=== PATIENT | female | born 2000 | race Caucasian/White ===

== ENCOUNTER 2020-08-25 10:00 | Outpatient (RCR) | payer OTHER, SELFPAY | END 2020-09-11 08:57 | disposition other institution (70) | LOC: HO.PT 10:00 | PROVIDERS: PCP Pediatrics; Visit Provider Pediatrics | DX: M94.0 Chondrocostal junction syndrome [Tietze] (principal) | CPT/HCPCS: 97110; 97161; 97530 ==

== ENCOUNTER 2023-03-07 09:57 | Outpatient (AMB) | payer OTHER, SELFPAY ==
[2023-03-07 09:59] VITALS: BP 124/86; PULSE 84; O2SAT 98; BMI 31.1
--- NOTE | 2023-03-07 09:59 | A.OFFVIS_ITS ---
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 Pt is here for med management, Pt states she gets migraines around her menstrual cycle and other times as well. Health Diagnostics Teacher Required: No Allergies banana Allergy (Unknown, Verified 03/07/23 10:09) Itching tree nut Allergy (Unknown, Verified 03/07/23 10:09) Itching Medication List - Last Reconciled 03/07/23 by Amina Hunter, STEVEN fluticasone propionate 50 mcg/actuation sprays intranasal L norgest/e.estradiol-e.estrad 0.15 mg-30 mcg (84)/10 mcg (7) (Simpesse) 1 tab PO DAILY prochlorperazine maleate 5 mg PO BID PRN propranolol 10 mg PO DAILY sertraline 100 mg PO DAILY HPI HPI Comments History of Present Illness Details Right-handed 22-yr-old female presents for new pt evaluation of headache disorder, specifically migraine. Pt reports she started having migraines at age 12, around the time of menarche. She previously saw Dr Webb, huma simpson, but ws last seen 4-5 yrs ago. She comes to see us today to restsablish care w/ neuro- as her headache have been getting worse. Headache questionnaire: Preceding causes? None Previous work-up? No h/o head imaging. She has had normal eye exams. Typical headache characteristics: Prodrome symptoms? None Aura? Sometimes the right eye will see flying zigzaggy objects in the peripheral vision- during the headache Location, quality, characteristics? Pounding pain starts in right eye and moves across her head. Pain intensity? 10/10 when severe Associated symptoms? photophobia, phonophobia, nausea, vomiting, dizziness, brain fog, tiredness, activity intolerance. Focal weakness, Parethesias, Autonomic s/s? right eye droop, watery, Has not noticed red eye, rhinorhea, or nasal congestion, numbness/tingling, diplopia. tingling/speech changes. Postdrome? Not usually Triggers? None Any positional, valsalva, exertional, sexual activity triggers? None Menstrual triggers? Has 1-2 more severe migraine attacks during her menses Time of day? Any time Duration? 1-2 days Frequency? 7 headaceh days in the last month. How does headache impact your life? 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 Going to school to be an EMT. Current acute medication use/interventions: Ibuprofen- not always helpful. Compazine 5mg- helps for severe migraine, N/V- but causes drowsiness. Previous acute medication use: Frovatriptan- was helpful. Tylenol- not helpful. Excedrin- ineffective. Naproxen- ineffective. Current preventative medication use: Propranolol 10mg qhs- uses for anxiety. Previous preventative medication use: Topiramate- helped some but stopped d/t family h/o kidney stones. Non-pharmacological interventions: Compress to head, rest. Other history of headache disorder? No other History of musculoskeletal disorders or injury? None History of concussion/head injury? None History of mood disorder? Anxiety and Depression, PTSD- controlled. History of sleep disorder? Always tired. Sleeps well, just a lot. Denies snoring. History of respiratory disease? None History of CV disease? None History of coagulopathy? None History of endocrine or metabolic disease? None. She wll start on new OCP- Simpesse- where she will have a menses q 3-4 months. History of seizure? Infantile febrile seizures- none since. History of GI disorder? None- denies constipation. Family planning? None Family history of migraine or other headache disorder? Mother PFSH Family History (Updated 03/07/23 @ 10:12 by Erendira Borden CMA) Father Seizures Mother Kidney stones Social History (Updated 03/07/23 @ 10:12 by Erendira Borden CMA) Patient Tobacco Use Status: Never used Tobacco Review of Systems Const Details: See scanned ROS form Physical Exam Vital Signs: Last Vital Signs Pulse 84 03/07/23 09:59 BP 124/86 03/07/23 09:59 Pulse Ox 98 03/07/23 09:59 Oxygen Delivery Method Room Air 03/07/23 09:59 BMI result Body Mass Index 31.1 Const Orientation/consciousness: patient oriented x3 HEENT Other: Mild right frontal and temporal palpable scalp tenderness. Head: Yes normocephalic Resp Effort & Inspection: normal respiratory effort and able to speak in complete sentences Back/Spine/Pelvis Other: Bilateral posterior cervical tightness. Cervical ROM: full Left Spurling: normal Right Spurling: normal. Neuro Other: Pt currently reports mild migraine General: patient oriented x3 Cranial nerves: Yes CN's II-XII intact bilaterally (w/ exception of right eyelid ptosis and photophobia ) Cognition (Neuro): normal cognition Gait exam (Neuro): Normal gait present Motor exam (neuro): 5/5 motor strength present throughout Deep tendon reflexes (DTR's): Right triceps reflex intensity grade: 2+, Left triceps reflex intensity grade: 2+, Rt Biceps (C5, C6): 2+, Left biceps reflex intensity grade: 2+, Right brachioradialis reflex intensity grade: 2+, Left brachioradialis reflex intensity grade: 2+, Right patellar reflex intensity grade: 2+ and Left patellar reflex intensity grade: 2+ Coordination: [id number] test normal, tandem gait normal and Romberg test negative Pupils: Normal pupillary reactivity/response: bilateral Psych Appearance: grossly normal Mental Status: mental status grossly normal Speech and movement: Normal speech and movement present Affect: normal affect Attitude: cooperative Thought process: Normal thought process present Assessment & Plan Assessment & Plan (1) Snoring: Code(s): R06.83 - Snoring (2) Excessive daytime sleepiness: Code(s): G47.19 - Other hypersomnia (3) Hypersomnia: Code(s): G47.10 - Hypersomnia, unspecified (4) Migraine: Code(s): G43.909 - Migraine, unspecified, not intractable, without status migrainosus (5) Ptosis, right eyelid: Code(s): H02.401 - Unspecified ptosis of right eyelid (6) Visual aura: Code(s): H53.9 - Unspecified visual disturbance (7) Menstrual migraine: Code(s): G43.829 - Menstrual migraine, not intractable, without status migrainosus Plan Pt advised to undergo brain MRI w/wo to assess for intracranial/cranial nerve etiologies of right eye ptosis, atypical right eye side locked visual aura. Pt advised to undergo HST to assess for sleep apnea. For overall headache management: Discussed importance of good self-care, including but not limited to maintaining a healthy diet, adequate fluid intake, adequate sleep, and engaging in regular physical activity. For headache triggers: Track headaches, especially after any treatment regimen changes. Migraine [employer] com is one of many headache tracking apps. For acute headache treatment: Discussed importance of taking acute medications at the first sign of headache, however stressed importance of avoiding acute medication overuse (especially with combined headache medications). Trial Sumatriptan 100mg tab, 1/2 - 1 tab (50-100mg) at onset of headache, may repeat in 2 hours. Max of 2 tabs (200mg) per 24 hours. May adjunct with OTC Tyle nol 650mg q 4 hours, or Ibuprofen 600mg q 6 hours. May continue prn Ibuprofen. May continue Compazine 5mg- prn for severe migraine, N/V. Reviewed risk for TD. Reviewed potential adverse effects of triptans, including but not limited to nausea, fatigue, chest tightness/tingling (usually passes within a few minutes), medication overuse headaches. Previous acute migraine medication trials: Frovatriptan- effective. Tylenol- not helpful. Excedrin- ineffective. Naproxen- ineffective. Acute migraine medication contraindications: None at this time For headache prevention medication: Discussed that preventative medications should be taken routinely as prescribed for best effect, it may take several weeks for full effect to take effect. Continue Propranolol 10mg qhs- used primarily for anxiety- would not increase further d/t hypersomnia. Start Ajovy 225mg sc q month Reviewed potential adverse effects of Ajovy, including but not limited to injection site reactions. Previous migraine prevention medication trials: Topiramate- helped some but stopped d/t family h/o kidney stones. Migraine prevention medication contraindications: Topiramate- d/t family h/o kidney stones. For menstrual migraine: Resume Frovatriptan 2.5mg bid- start 2 days before onset of menses for up to 6 days total. Pt to follow-up in 3 months or sooner prn. Orders: Orders RT home sleep study Today G47.10 - Hypersomnia, unspecified, G47.19 - Other hypersomnia, R06.83 - Snoring MR head/brain wo/w con Today G43.909 - Migraine, unspecified, not intractable, without status migrainosus, H02.401 - Unspecified ptosis of right eyelid, H53.9 - Unspecified visual disturbance Medications: New fremanezumab-vfrm (Ajovy) administer 225mg sc q month 225 mg (1.5 mL) subcut ONCE 30 days 1.5 mL 6RF sumatriptan succinate (0.5 - 1 x 100 mg) 50 - 100 mg orally at onset of headache, may repeat in 2 hrs PRN; max 2 tabs per day or 4 tabs/week (may take w ith Tylenol) 30 days 12 tabs 6RF migraine headache frovatriptan 2.5 mg orally bid- start 2 days before menses (max 6 days per month) PRN; 30 days 12 tabs 6RF migraine headache Coding Level of Care Code New Pt Level 4 (61410) Diagnoses Snoring R06.83 Excessive daytime sleepiness G47.19 Hypersomnia G47.10 Migraine G43.909 Ptosis, right eyelid H02.401 Visual aura H53.9 Menstrual migraine G43.829
== END 2023-03-07 11:24 | disposition home or self-care (01) ==
PROVIDERS: Visit Provider Nurse Practitioner Family
DX: R06.83 Snoring (principal); G47.19 Other hypersomnia; G47.10 Hypersomnia, unspecified; G43.909 Migraine, unspecified, not intractable, without status migrainosus; H02.401 Unspecified ptosis of right eyelid; H53.9 Unspecified visual disturbance; G43.829 Menstrual migraine, not intractable, without status migrainosus
CPT/HCPCS: 99204

== ENCOUNTER → 2023-03-07 09:57 | Outpatient (BNVA) | payer OTHER, SELFPAY | PROVIDERS: Visit Provider Nurse Practitioner Family ==

== ENCOUNTER 2023-03-17 15:23 | Outpatient (AMB) | payer OTHER, SELFPAY ==
[2023-03-17 15:56] VITALS: BP 132/74; PULSE 88; O2SAT 99; BMI 30.8
--- NOTE | 2023-03-17 15:56 | MHC.OFFVIS ---
Intake Vital Signs 03/17/23 15:56 Height 5 ft 3 in Weight 174 lb BMI 30.8 BP 132/74 Blood Pressure Location Rt brachial Position Sitting Pulse 88 Pulse Source Pulse Oximeter Pulse Oximetry (%) 99 Oxygen Delivery Method Room Air Intake Visit Reasons: injection training Intake Note: Pt presents to the office today for a nurse visit for injection training. Allergies banana Allergy (Unknown, Verified 03/17/23 16:00) Itching tree nut Allergy (Unknown, Verified 03/17/23 16:00) Itching HPI HPI Comments History of Present Illness Details 22 y/o female patient presents for Ajovy injection training. Ajovy 225 mg/1.5ml injection sample provided. Lot #[id number] and Exp [id number] Education regarding injection and side effects provided. Ajovy 225 mg/1.5ml injection self administered on LLQ. Pt tolerated and demonstrated the injection well. PFSH Family History Father Seizures Mother Kidney stones Social History Patient Tobacco Use Status: Never used Tobacco Physical Exam Vital Signs: Last Vital Signs Pulse 88 03/17/23 15:56 BP 132/74 03/17/23 15:56 Pulse Ox 99 03/17/23 15:56 Oxygen Delivery Method Room Air 03/17/23 15:56 BMI result Body Mass Index 30.8 Assessment & Plan Assessment & Plan (1) Migraine: Code(s): G43.909 - Migraine, unspecified, not intractable, without status migrainosus Plan Follow up in clinic as scheduled or prn with concerns. Coding Level of Care Code Est Pt Level 1 (76548) Diagnoses Migraine G43.909
== END 2023-03-17 16:17 | disposition home or self-care (01) ==
PROVIDERS: PCP Pediatrics; Visit Provider Nurse Practitioner Family
DX: G43.909 Migraine, unspecified, not intractable, without status migrainosus (principal)

== ENCOUNTER → 2023-03-17 15:23 | Outpatient (BNVA) | payer OTHER, SELFPAY | PROVIDERS: PCP Pediatrics; Visit Provider Nurse Practitioner Family | DX: G43.909 Migraine, unspecified, not intractable, without status migrainosus (principal) | CPT/HCPCS: 99211 ==

== ENCOUNTER → 2023-04-17 10:08 | Outpatient (REF) | payer OTHER, SELFPAY | LOC: HO.SL 10:08 | PROVIDERS: PCP Pediatrics; Visit Provider Nurse Practitioner Family | DX: Z13.89 Encounter for screening for other disorder (principal) ==

== ENCOUNTER 2023-05-21 16:30 | Outpatient (REF) | payer OTHER, SELFPAY ==
--- NOTE | ~2023-05-21 | MR_ITS ---
EXAMINATION: MR BRAIN WITHOUT AND WITH CONTRAST CLINICAL INFORMATION: ptosis of right eyelid COMPARISON: None TECHNIQUE: Multiplanar multisequence MR imaging of the brain was obtained without and following the administration of 7.5 mL Gadavist intravenous contrast. FINDINGS: There is no acute infarct on diffusion-weighted imaging. There is no intracranial hemorrhage on iron-sensitive imaging. No extra-axial collection or mass effect/herniation. Normal parenchymal signal characteristics. No hydrocephalus. The ventricles are normal in morphology and size. No abnormal parenchymal or extra-axial enhancement. The major flow voids at the skull base are preserved. The midline structures are normal. The cerebellar tonsils are normally positioned. The craniocervical junction is normal. Marrow signal is within normal limits. The visualized soft tissues are without significant abnormality. No signal abnormality within the paranasal sinuses or within the mastoid air cells. MR/MR head/brain wo/w con IMPRESSION: Unremarkable contrast enhanced MRI of the brain.
[2023-05-21] MEDS: gadobutroL 7.5 ML VIAL IVPUSH (17:22)
== END 2023-05-21 16:31 | disposition home or self-care (01) ==
LOC: HO.MRI 16:30
PROVIDERS: PCP Pediatrics; Visit Provider Nurse Practitioner Family
DX: H02.401 Unspecified ptosis of right eyelid (principal); G43.909 Migraine, unspecified, not intractable, without status migrainosus; H53.9 Unspecified visual disturbance
CPT/HCPCS: 70553; A9585

== ENCOUNTER 2023-05-30 15:58 | Outpatient (REF) | payer OTHER, SELFPAY ==
[2023-05-30 16:23] LABS: MANUAL DIFF FLAG NO
[2023-05-30 17:05] LABS: Basophils Absolute Auto 0.1 X10*3/uL (0.0-0.2); Basophils Percent Auto 0.6 % (0-2); Eosinophils Absolute Auto 0.2 X10*3/uL (0.0-0.4); Hematocrit 38.1 % (37.0-47.0); Hemoglobin 12.1 g/dl (12.0-16.0); Imm Gran Abs Auto 0.03 X10*3/uL (0.00-0.03); Imm Gran Pct Auto 0.4 % (0.0-0.4); Lymphocytes Absolute Auto 3.2 X10*3/uL (1.2-4.9); Lymphocytes Percent Auto 39.3 % (20-40); Mean Corpuscular HGB Conc 31.8 g/dl (31.0-35.0); Mean Corpuscular Hemoglobin 27.6 pg (27.0-33.0); Mean Platelet Volume 10.9 fL (9.4-12.3); Monocytes Absolute Auto 0.6 X10*3/uL (0.1-1.2); Monocytes Percent Auto 7.1 % (2-11); Neutrophils Absolute Auto 4.1 x10*3/uL (2.0-8.3); Neutrophils Percent Auto 50.6 % (45-73); Platelet Count 340 X10*3/uL (160-400); Red Blood Count 4.38 X10*6/uL (4.20-5.50)
[2023-05-30 17:35] LABS: Alanine Aminotransferase 18 U/L (0-31); Albumin Level 4.2 g/dL (3.5-5.0); Alkaline Phosphatase 66 U/L (39-117); Aspartate Amino Transferase 17 U/L (5-31); Bilirubin Direct < 0.2 mg/dL (0.0-0.5); Bilirubin Total 0.1 mg/dL (0.0-1.0); C Reactive Protein 1.49 mg/dL (< or = 0.50); Total Protein 7.2 g/dL (6.5-8.0)
[2023-05-30 17:48] LABS: Erythrocyte Sedimentation Rate 5 MM/HR (0-20)
[2023-06-02 16:38] LABS: Immunoglobulin A 88 mg/dL (47-310)
[2023-06-03 16:48] LABS: Endomysial IgA Antibody Negative (Negative)
[2023-06-03 20:04] LABS: Gliadin Deamidated IgA Ab 2.4 U/mL; Gliadin Deamidated IgG Ab <1.0 U/mL; Transglutaminase Ab IgG <1.0 U/mL; Transglutaminase IgA <1.0 U/mL
== END 2023-05-30 15:59 | disposition home or self-care (01) ==
LOC: HO.LAB 15:58
PROVIDERS: Visit Provider Internal Medicine
DX: R19.7 Diarrhea, unspecified (principal)
CPT/HCPCS: 36415; 80076; 82784; 85025; 85652; 86140; 86231; 86258; 86364

== ENCOUNTER 2023-06-23 09:37 | Outpatient (AMB) | payer OTHER, SELFPAY ==
--- NOTE | 2023-06-23 09:51 | A.OFFVIS_ITS ---
Intake Vital Signs 06/23/23 09:52 Weight 185 lb BP 100/66 Blood Pressure Location Rt brachial Position Sitting Pulse 96 Pulse Source Pulse Oximeter Pulse Oximetry (%) 98 Oxygen Delivery Method Room Air Intake Visit Reasons: 3m follow up Migraines/ LVM Allergies banana Allergy (Unknown, Verified 06/23/23 09:54) Itching tree nut Allergy (Unknown, Verified 06/23/23 09:54) Itching Medication List - Last Reconciled 06/23/23 by STEVEN Luz fluticasone propionate 50 mcg/actuation sprays intranasal fremanezumab-vfrm (Ajovy) 225 mg (1.5 mL) subcut ONCE 30 days frovatriptan 2.5 mg orally bid- start 2 days before menses (max 6 days per month) PRN; 30 days L norgest/e.estradiol-e.estrad 0.15 mg-30 mcg (84)/10 mcg (7) (Simpesse) 1 tab PO DAILY prochlorperazine maleate 5 mg PO BID PRN propranolol 10 mg PO DAILY sertraline 100 mg PO DAILY sumatriptan succinate 50 - 100 mg orally at onset of headache, may repeat in 2 hrs PRN; max 2 tabs per day or 4 tabs/week (may take with Tylenol) 30 days HPI HPI Comments History of Present Illness Details 22-yr-old female presents for f/u visit. Pt denies any significant interval medical changes. Pt reports since starting Ajovy, she has had a decrease in her migraines. Was 7 days a month, now 3 days per month- often after the Emgality injection. Sumatriptan is helpful if she takes at the 1st sign. She did not complete her HST- was sick at the time and had to return it. She continues to have excessive daytime tiredness, hypersomnia, snoring. Brain MRI was normal. [facility] Family History Father Seizures Mother Kidney stones Social History (Updated 06/23/23 @ 09:55 by Huyen Caraballo) Alcohol intake: never Patient Tobacco Use Status: Never used Tobacco Review of Systems Const All systems reviewed & are unremarkable except as noted in HPI and below Physical Exam Vital Signs: Last Vital Signs Pulse 96 06/23/23 09:52 BP 100/66 12/04/23 09:52 Pulse Ox 98 06/23/23 09:52 Oxygen Delivery Method Room Air 06/23/23 09:52 Const General: cooperative and no acute distress Orientation/consciousness: patient oriented x3 HEENT Head: Yes normocephalic Resp Effort & Inspection: normal respiratory effort and able to speak in complete sentences Neuro General: patient oriented x3, gait normal and CN's II-XI intact bilaterally Cognition (Neuro): normal cognition Motor exam (neuro): 5/5 motor strength present throughout Psych Appearance: grossly normal Mental Status: mental status grossly normal Speech and movement: Normal speech and movement present Affect: normal affect Attitude: cooperative Thought process: Normal thought process present Thought content: Normal thought content present Insight: Good insight present (Psych) Judgement: Good judgement present (Psych) Assessment & Plan Assessment & Plan (1) Migraine: Code(s): G43.909 - Migraine, unspecified, not intractable, without status migrainosus (2) Menstrual migraine: Code(s): G43.829 - Menstrual migraine, not intractable, without status migrainosus (3) Hypersomnia: Code(s): G47.10 - Hypersomnia, unspecified (4) Excessive daytime sleepiness: Code(s): G47.19 - Other hypersomnia (5) Snoring: Code(s): R06.83 - Snoring Plan Reviewed Brain MRI w/wo- normal. Pt again advised to undergo HST to assess for sleep apnea. For overall headache management: Continue to optimize good self-care, including but not limited to maintaining a healthy diet, adequate fluid intake, adequate sleep, and engaging in regular physical activity. Track headaches. For acute headache treatment: Carry 1-2 doses of acute medications w/ pt at all x's. Continue Sumatriptan 100mg tab, 1/2 - 1 tab (50-100mg) at onset of headache, may repeat in 2 hours. Max of 2 tabs (200mg) per 24 hours. May adjunct with OTC Tylenol 650mg q 4 hours, or Ibuprofen 600mg q 6 hours. Continue prn Ibuprofen. Continue Compazine 5mg- prn for severe migraine, N/V. Reviewed risk for TD. Previous acute migraine medication trials: Frovatriptan- effective. Tylenol- not helpful. Excedrin- ineffective. Naproxen- ineffective. Acute migraine medication contraindications: None at this time For headache prevention medication: Continue Propranolol 10mg qhs- used primarily for anxiety- would not increase further d/t hypersomnia. Continue Ajoivy 225mg sc q month- as pt has had > 50% reduction in monthly migraine days Previous migraine prevention medication trials: Topiramate- helped some but stopped d/t family h/o kidney stones. Migraine prevention medication contraindications: Topiramate- d/t family h/o kidney stones. For menstrual migraine: Consider resuming Frovatriptan 2.5mg bid- not rec'd from pharmacy yet. Pt to follow-up in 6 months or sooner prn. Orders: Orders RT home sleep study Today G47.10 - Hypersomnia, unspecified, G47.19 - Other hypersomnia, R06.83 - Snoring Coding Level of Care Code Est Pt Level 4 (18968) Diagnoses Migraine G43.909 Menstrual migraine G43.829 Hypersomnia G47.10 Excessive daytime sleepiness G47.19 Snoring R06.83
[2023-06-23 09:52] VITALS: BP 100/66; PULSE 96; O2SAT 98
== END 2023-06-23 10:34 | disposition home or self-care (01) ==
PROVIDERS: PCP Pediatrics; Visit Provider Nurse Practitioner Family
DX: G43.909 Migraine, unspecified, not intractable, without status migrainosus (principal); G43.829 Menstrual migraine, not intractable, without status migrainosus; G47.10 Hypersomnia, unspecified; G47.19 Other hypersomnia; R06.83 Snoring
CPT/HCPCS: 99214

== ENCOUNTER → 2023-06-23 09:37 | Outpatient (BNVA) | payer OTHER, SELFPAY | PROVIDERS: PCP Pediatrics; Visit Provider Nurse Practitioner Family ==

== ENCOUNTER 2024-01-19 11:46 | Outpatient (AMB) | payer OTHER, SELFPAY ==
[2024-01-19 12:06] VITALS: BP 122/84; PULSE 76; O2SAT 99; BMI 33.1
--- NOTE | 2024-01-19 12:06 | MHC.OFFVIS ---
Vital Signs 01/19/24 12:06 Height 5 ft 3 in Weight 187 lb BMI 33.1 BP 122/84 Blood Pressure Location Rt brachial Position Sitting Pulse 76 Pulse Source Pulse Oximeter Pulse Oximetry (%) 99 Oxygen Delivery Method Room Air Intake Visit Reasons: Annual check up-LVM Intake Note: Patient presents for annual check up. patient has no issues or concerns today Allergies banana Allergy (Unknown, Verified 01/19/24 12:12) Itching tree nut Allergy (Unknown, Verified 01/19/24 12:12) Itching Medication List - Last Reconciled 01/19/24 by STEVEN Luz fluticasone propionate 50 mcg/actuation sprays intranasal fremanezumab-vfrm (Ajovy) 225 mg (1.5 mL) subcut ONCE 30 days frovatriptan 2.5 mg orally bid- start 2 days before menses (max 6 days per month) PRN; 30 days L norgest/e.estradiol-e.estrad 0.15 mg-30 mcg (84)/10 mcg (7) (Simpesse) 1 tab PO DAILY prochlorperazine maleate 5 mg PO BID PRN propranolol 10 mg PO DAILY sertraline 100 mg PO DAILY sumatriptan succinate 50 - 100 mg orally at onset of headache, may repeat in 2 hrs PRN; max 2 tabs per day or 4 tabs/week (may take with Tylenol) 30 days topiramate 25 - 50 mg (1 - 2 x 25 mg) PO BEDTIME 30 days HPI Comments Details: 23-yr-old presents for f/u visit of migraine and sleep. Pt denies any significant interval medical changes. Pt reports she stopped the Ajovy- as it was a hassle to obtain through the pharmacy. So she requested to retry Topiramate. She started Topiramate 25mg which took the edge off, and then increased it to 50mg qhs. For about a week after increasing the dose, they had bilateral fingertip tingling, but then this subsided. Has not needed to use any as needed headache medication lately. Baseline headache characteristics: Prodrome symptoms: None Aura: Sometimes the right eye will see flying zigzaggy objects in the peripheral vision- during the headache Severe pounding pain starts in right eye and moves across her head a/w photophobia, phonophobia, nausea, vomiting, dizziness, brain fog, tiredness, activity intolerance, right eye droop, watery. Postdrome: Not usually PFSH Family History Father Seizures Mother Kidney stones Social History Alcohol intake: never Patient Tobacco Use Status: Never used Tobacco Physical Exam Vital Signs: Last Vital Signs Pulse 76 01/19/24 12:06 BP 122/84 01/19/24 12:06 Pulse Ox 99 01/19/24 12:06 Oxygen Delivery Method Room Air 01/19/24 12:06 BMI result Body Mass Index 33.1 Const General: cooperative and no acute distress Orientation/consciousness: patient oriented x3 Resp Effort & Inspection: normal respiratory effort and able to speak in complete sentences Neuro General: patient oriented x3 Cranial nerves: Yes CN's II-XII intact bilaterally Cognition (Neuro): normal cognition Psych Appearance: grossly normal Mental Status: mental status grossly normal Speech and movement: Normal speech and movement present Affect: normal affect Attitude: cooperative Assessment & Plan Assessment & Plan (1) Migraine: Code(s): G43.909 - Migraine, unspecified, not intractable, without status migrainosus Category: Medical (2) Visual aura: Code(s): H53.9 - Unspecified visual disturbance Category: Medical (3) Menstrual migraine: Code(s): G43.829 - Menstrual migraine, not intractable, without status migrainosus Category: Medical (4) Hypersomnia: Code(s): G47.10 - Hypersomnia, unspecified Category: Medical Plan When able, HST to assess for sleep apnea. ? For overall headache management: Continue to optimize good self-care, including but not limited to maintaining a healthy diet, adequate fluid intake, adequate sleep, and engaging in regular physical activity. Track headaches. ? For acute headache treatment: Carry 1-2 doses of acute medications w/ pt at all x's. Continue Sumatriptan 100mg tab, 1/2 - 1 tab (50-100mg) at onset of headache, may repeat in 2 hours. Max of 2 tabs (200mg) per 24 hours. May adjunct with OTC Tylenol 650mg q 4 hours, or Ibuprofen 600mg q 6 hours. Continue prn Ibuprofen. Continue Compazine 5mg- prn for severe migraine, N/V. Reviewed risk for TD. Previous acute migraine medication trials: Frovatriptan- effective. Tylenol- not helpful. Excedrin- ineffective. Naproxen- ineffective. Acute migraine medication contraindications: None at this time ? For headache prevention medication: Continue Propranolol 10mg qhs- used primarily for anxiety- would not increase further d/t hypersomnia. Continue Topiramate 50mg qhs. Pt has stopped Ajoivy 225mg- found it to be more cumbersome to manage receiving it than was beneficial. Previous migraine prevention medication trials: Topiramate- helped some but stopped d/t family h/o kidney stones. Migraine prevention medication contraindications: Topiramate- d/t family h/o kidney stones. ? For menstrual migraine: Consider resuming Frovatriptan 2.5mg bid- not rec'd from pharmacy yet. ? Pt to follow-up in 6 months or sooner prn. Medications: New topiramate 50 mg PO BEDTIME 30 days 30 tabs 6RF Refilled sumatriptan succinate (0.5 - 1 x 100 mg) 50 - 100 mg orally at onset of headache, may repeat in 2 hrs PRN; max 2 tabs per day or 4 tabs/week (may take with Tylenol) 30 days 12 tabs 6RF migraine headache Discontinued fremanezumab-vfrm (Ajovy) administer 225mg sc q month Discontinued Reason: Patient no longer taking 225 mg (1.5 mL) subcut ONCE 30 days 1.5 mL 6RF topiramate Discontinued Reason: Doctor's Order 25 - 50 mg (1 - 2 x 25 mg) PO BEDTIME 30 days 60 tabs 3RF Coding Level of Care Code Est Pt Level 4 (60039) Diagnoses Migraine G43.909 Visual aura H53.9 Menstrual migraine G43.829 Hypersomnia G47.10
== END 2024-01-19 13:08 | disposition home or self-care (01) ==
PROVIDERS: PCP Pediatrics; Visit Provider Nurse Practitioner Family
DX: G43.909 Migraine, unspecified, not intractable, without status migrainosus (principal); H53.9 Unspecified visual disturbance; G43.829 Menstrual migraine, not intractable, without status migrainosus; G47.10 Hypersomnia, unspecified
CPT/HCPCS: 99214

== ENCOUNTER → 2024-01-19 11:46 | Outpatient (BNVA) | payer OTHER, SELFPAY | PROVIDERS: PCP Pediatrics; Visit Provider Nurse Practitioner Family ==

== ENCOUNTER → 2024-08-25 12:52 | Outpatient (BNVA) | payer OTHER, SELFPAY | PROVIDERS: PCP Pediatrics; Visit Provider Nurse Practitioner Family ==

== ENCOUNTER 2025-05-19 12:25 | Outpatient (AMB) | payer OTHER, SELFPAY ==
--- OUTSIDE RECORDS SUMMARY | 2023-11-25 05:10 | XMS_ITS ---
Author Organization [facility] Address [address] [place] [id number] Care Team Providers Care Nursing Education Specialist Name Role Phone Houston DOMINGUEZ, [place] Primary Care Provider UnavailRoland Vazquez [phone] REASON FOR VISIT Patient presents today for diarrhea Encounters Encounter Location Date Provider Diagnosis [facility] [address] [place] [id number] 11/25/2023 Roland Clark Plan Of Treatment No Information Progress Notes * TIFFANY VALEALPHONSOOB:[birth year] (24 yo F)Acc No.[id number]:11/25/2023 Progress Notes Patient: ALEXANDREA PANTOJA Provider: Misty Clark MD :2000 A ge:22 Y S ex:Female Date:11/25/2023 Address:[address] [place], [place] [id number] Pcp:Aurora Conrad NP Subjective: * Chief Complaints: * 1 . Patient presents today for diarrhea. * Medical History: Objective: * Vitals: Assessment: Plan: * Treatment: * * The named appointment provid er may or may not be the originator of this progress note, and it is not deemed complete until electronically signed by the appointment provider. Sign off status: Pending * Provider: Misty Clark MD Date: 0 11/25/2023 Generated for Lumai ng/Fakendrickg/eTransmitting on: 1 03:16 PM EDT
[2025-05-19 12:27] VITALS: BP 110/60; PULSE 90; RESP 16; O2SAT 99; BMI 30.5
--- NOTE | 2025-05-19 12:27 | MHC.PC.OV ---
Vital Signs 05/19/25 12:27 Height 5 ft 3 in Weight 172 lb BMI 30.5 BP 110/60 Blood Pressure Location Lt brachial Position Sitting Respiration 16 Pulse 90 Pulse Source Pulse Oximeter Pulse Oximetry (%) 99 Oxygen Delivery Method Room Air Intake Visit Reasons: [employer] sera Gallego. Steaming Machine Operator Required: No Allergies banana Allergy (Unknown, Verified 05/19/25 12:58) Itching tree nut Allergy (Unknown, Verified 05/19/25 12:58) Itching Medication List - Last Reconciled 05/19/25 by Julián Ríos, [facility] frovatriptan 1 tab bid x's 6 days prior to start of menstrual cycle. 30 days L norgest/e.estradiol-e.estrad 0.15 mg-30 mcg (84)/10 mcg (7) (Simpesse) 1 tab PO DAILY prochlorperazine maleate 5 mg PO BID PRN 30 days propranolol 10 mg PO DAILY sertraline 150 mg PO DAILY sumatriptan succinate 50 - 100 mg orally at onset of headache, may repeat in 2 hrs PRN; max 2 tabs per day or 4 tabs/week (may take with Tylenol) 30 days topiramate 50 mg PO BEDTIME 30 days Tobacco use date assessed: 05/19/25 Dental Screening Dental Screen Date: 05/19/25 Did you have a dental visit in the last 12 months?: Yes Did you have a dental problem in the last 6 months where you did not have access to dental care?: No Was dental information given to patient?: Patient has dentist HPI [employer] sera Gallego. HPI Details History of Present Illness The patient is a 24-year-old female presenting for a physical exam and to establish care. 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 The patient reports she is doing quite well. She has a psychiatric history and sees both a therapist and a psychiatrist. For gynecological care, she has an established [facility] for Pap smears. Hx of migraines, sees a neurologist Health Maintenance - The patient is here for a physical exam. - The patient has a elevator service technician for routine Pap smears. - Fasting labs are planned for the near future. Social History - Employment: The patient has been working for an ambulance team for about seven months. - Exercise: She enjoys working out at the gym. Review of Systems - General: Reports doing quite well. Physical Exam General: Cooperative, healthy appearing, comfortable, no acute distress and well developed Orientation: Patient oriented x3 Limitations: No limitations Head: Normal to inspection Ears: Hearing grossly normal bilaterally Nose: Normal external nose present Face and sinus: Normal facial exam Eyes: Appearance normal, both eyes and all related structures Neck: Normal visual inspection and Yes full ROM Respiratory: Normal respiratory effort and able to speak in complete sentences. Clear to auscultation bilaterally Cardiovascular: Regular rate and rhythm. Normal S1 and S2 GI: Normal to inspection. Soft to palpation and nontender Skin: No rashes or lesions noted Neuro: Patient oriented x3 Extremities: Normal to inspection Results Plan 1. Annual Physical Examination The patient is a new patient establishing care after transferring from a lock up worker. She will have fasting labs drawn in the near future. 2. Psychiatric Disorder, Unspecified The patient has an established history of a psychiatric condition and is actively managed by a therapist and psychiatrist (anxiety/depression) 3. Preventative Care: Gynecological Examination The patient has an established elevator service technician for routine screenings. Discussion Notes I discussed with the patient that I would like her to get fasting labs completed in the near future. Patient Instructions - Please get your fasting labs done in the near future. [facility] Medical History Anxiety and depression Family History Father Seizures Mother Kidney stones Social History Housing: House Alcohol intake: never Patient Tobacco Use Status: Never used Tobacco service: No Current occupational status: unemployed Cognitive needs: No Hearing needs: No Vision needs: Yes Questionnaire PHQ-9 Over the last 2 weeks, how often have you been bothered by any of the following problems? 1. Little interest or pleasure in doing things: not at all 2. Feeling down, depressed, or hopeless: not at all 3. Trouble falling or staying asleep, or sleeping too much: not at all 4. Feeling tired or having little energy: not at all 5. Poor appetite or overeating: not at all 6. Feeling bad about yourself - or that you are a failure or have let yourself or your family down: not at all 7. Trouble concentrating on things, such as reading the newspaper or watching television: not at all 8. Moving or speaking so slowly that other people could have noticed. Or the opposite - being so fidgety or restless that you have been moving around a lot more than usual: not at all 9. Thoughts that you would be better off or of hurting yourself in some way: not at all Total score: 0 Depression Screening Interpretation: Negative Depression Screening Done: Yes 75813 - PHQ-9 Billing: Yes Source: Developed by Drs. Roland Bean, Natalie Ramos, Ramos Collazo and colleagues, with an educational ed from [employer]. Thrive Questionnaire I am a: Patient What is your living situation today?: I have a steady place to live Within the past 12 months, did the food you bought not last and you didn't have the money to get more?: Never true Within the past 12 months, did you worry whether your food would run out before you got money to buy more?: Never true Do you have trouble paying for medicines?: No Do you have trouble getting transportation to medical appointments?: No Do you have trouble paying your heating and electricity bill?: No Do you have trouble taking care of your child, family member or friend?: No Do you have trouble with day-to-day activities such as bathing, preparing meals, shopping, managing finances, etc.?: No Are you currently unemployed and looking for a job?: No Are you interested in more education?: Yes Please select the resources that you would like help with: None Currently or been in a relationship where the following occur: No concerns reported THRIVE Score: 0 AUDIT C Alcohol Use Questionnaire (AUDIT-C) 1. How often do you have a drink containing alcohol?: Monthly or less 2. How many drinks containing alcohol do you have on a typical day when you are drinking?: 1 or 2 3. How often do you have six or more drinks on one occasion?: Never Total Score: 1 ANDRIA-7 AMB Questionnaire ANDRIA-7 Date ANDRIA - 7 assessed: 05/19/25 Feeling nervous, anxious, or on edge: 0 = Not at all Not being able to stop or control worryin = Not at all Worrying too much about different things: 0 = Not at all Trouble relaxin = Not at all Being so restless that it is hard to sit still: 0 = Not at all Becoming easily annoyed or irritable: 2 = More than half the days Feeling afraid as if something awful might happen: 0 = Not at all Total ANDRIA-7 score (0-4 normal; 5-9 mild; 10-14 moderate; 15-21 severe): 2 Source: Developed by Drs. Roland Bean, Natalie Ramos, Ramos Collazo and colleagues, with an educational ed from [employer]. ANDRIA-7 Assessment Billing ANDRIA-7 Assessment Tool: ANDRIA-7 Assessment 59153 Physical exam (Primary Care) Vital Signs: Last Vital Signs Pulse 90 05/19/25 12:27 Resp 16 05/19/25 12:27 BP 110/60 05/19/25 12:27 Pulse Ox 99 05/19/25 12:27 Oxygen Delivery Method Room Air 05/19/25 12:27 BMI result Body Mass Index 30.5 Tobacco/Smoking Status: Tobacco use Status Tobacco use date assessed 05/19/25 05/19/25 12:34 Patient Tobacco Use Status Never used Tobacco 05/19/25 12:27 PHQ-9: PHQ-9 Score PHQ-9: Total score 0 05/19/25 12:34 Depression Screening Interpretation: Negative Currently or been in a relationship where the following occur: No concerns reported Coding Level of Care Code New Pt Prev Care 18-39yr(24525 Diagnoses Physical exam Z00. Additional Codes ANDRIA-7 Assessment Billing - ANDRIA-7 Assessment Tool: ANDRIA-7 Assessment 54712 ([id number]) PHQ-9 - 43899 - PHQ-9 Billing: Yes ([id number]) Assessment & Plan Assessment & Plan (1) Physical exam: Code(s): Z00.00 - Encounter for general adult medical examination without abnormal findings Category: Medical Plan . Orders: Orders Complete Blood Count Auto Diff Today Z00.00 - Encounter for general adult medical examination without abnormal findings UA CC w/rflx Micro + Cult Today Z00.00 - Encounter for general adult medical examination without abnormal findings Lipid Panel Today Z00.00 - Encounter for general adult medical examination without abnormal findings Comprehensive [place]. Panel Fast Today Z00.00 - Encounter for general adult medical examination without abnormal findings TSH reflex Free T4 Today Z00.00 - Encounter for general adult medical examination without abnormal findings
--- OUTSIDE RECORDS SUMMARY | 2025-05-19 15:15 | XMS_ITS ---
Author Name [facility] Organization Unknown Encounters Encounter Type Encounter Reason Primary Diagnosis Location Date Ambulatory Encounter for genera l adult medical examination without abnormal findings Encounter for general adult medical examination without abnormal findings [facility] 03/10/2023 Care Team Organization Name Specialty Phone Email Start Date End Da te [facility] 03/16/2023 [facility] JANET MANDEL Primary Care 02/1903/10/2023
--- OUTSIDE RECORDS SUMMARY | 2025-05-19 15:16 | XMS_ITS | Clinical Summary ---
Author Organization [facility] Address [address] [place] [address] Phone Care Team Providers Care Pot Annealer Name Role Phone Unavailable Primary Care Provider Unavailabl e Allergies Active Allergy Reactions Criticality Noted Date Comments Banana 04/24/2020 Anika Oil 04/24/2020 Environmental 04/24/2020 Tree Nuts (Food) 04/24/2020 Medications naproxen 500 MG tablet TK 1 T PO ONCE PRN. REPEAT IN 12 H IF NEEDED 1 8 Active Multiple Vitamin (MULTIVITAMINS PO) Multivitamins; 0; 06/21/2011; Active 1 Active sertraline 100 MG tablet Take 100 mg by mouth once daily. 0 8 Active norethindrone-eth inyl estradiol (Nortrel 0.5/35, 28,) 0.5-35 MG-MCG per tabletIndications :Encounter for surveillance of contraceptive pills Take 1 tablet by mouth once daily. 84 tablet 3 2 Active EPINEPHrine (EpiPen 2-Nathan) 0.3 MG/0.3ML injection syringeIndication s:Food allergy Inject into muscle immediately for signs of anaphylaxis AND call 911. Repeat if symptoms worsen/recur or if uncertain medicine was given 2 each 1 3 Active fluticasone 50 MCG/ACT nasal spray SPRAY IN EACH NOSTRIL FOR 7 DAYS AND THEN NEEDED FOR ALLERGIES OR CONGESTION 3 Active Ajovy 225 MG/1.5ML solution auto-injector 3 Active propranolol 10 MG tablet Take 10 mg by mouth once daily. Active SUMAtriptan 100 MG tablet 3 Active topiramate 50 MG tablet Take 50 mg by mouth nightly. 4 Active Levonorgest-Eth Estrad 91-Day (Simpesse) 0.15-0.03 &0.01 MG tablet Take 1 tablet by mouth daily. 4 Active frovatriptan 2.5 MG tablet TAKE 1 TABLET TWICE DAILY FOR 6 DAYS PRIOR TO START OF MENSTRUAL CYCLE 5 Active prochlorperazine 5 MG tablet TAKE 1 TABLET BY MOUTH TWICE DAILY NEEDED FOR NAUSEA OR VOMITING 5 Active albuterol HFA 108 (90 Base) MCG/ACT inhalerIndication s:Shortness of breath Inhale 2 puffs every 4 (four) hours as needed for wheezing or shortness of breath. 1 Units 5 026 Active Active Problems Problem Noted Date Diagnosed Date Other microscopic hematuria 01/30/2024 Assessment & Plan (01/30/2024 8:49 AM EDT): Trace blood and small leukocytes in today's urine No nitrates. Asymptomatic. Will send to lab for culture. Diarrhea 01/06/2023 Assessment & Plan (01/06/2023 8:52 AM EDT): Chronic diarrhea. Discussed possibilities of gluten insensitivity or lactose deficiency. Wants full testing with a GI doctor. Will refer. Influenza vaccination declined 06/05/2022 Assessment & Plan (06/09/2023 9:09 AM EST): Discussed hx and risk vs benefit Pt declines Encounter for surveillance of contraceptive pill s 06/05/2022 Assessment & Plan (06/09/2023 9:09 AM EST): Doing well on OCP Assessment & Plan (06/05/2022 2:08 PM EST): Doing well on OCP Ovarian cyst rupture 05/16/2021 Assessment & Plan (05/16/2021 9:57 AM EDT): Ovarian cyst rupture last month Went to ER due to severe pain Pain has since subsided, no bleeding Has f/u with therapist in 2 weeks BMI 31.0-31.9,adult 05/16/2021 Assessment & Plan (06/09/2023 9:10 AM EST): Discussed concerns regarding weight Reviewed assisted potential health risks associated with obesity Discussed dietary changes, portion sizes, limiting snacks, and encouraged healthier options Also reviewed importance of daily aerobic activity Assessment & Plan (06/05/2022 2:07 PM EST): Weight has come down slightly Encouraged aerobic activity and healthy eating habits Anxiety 05/16/2021 Assessment & Plan (06/09/2023 9:12 AM EST): Managing well with medications Followed by psych and therapist Assessment & Plan (06/05/2022 2:08 PM EST): Followed by psych and therapist Currently on Seroquel, sertraline, and buspirone Assessment & Plan (05/16/2021 10:00 AM EDT): Followed by psychiatry Goes to therapy regularly Doing well on current regimen of seroquel, sertraline, buspirone Menstrual migraine without s tatus migrainosus, not intractable 11/25/2019 Overview (05/21/2023): [facility] STEVEN Luz 03/07/23 Plan: Undergo brain MRI, undergo HST to assess for sleep apnea, track headaches, good self-care, trial Sumatriptan 100mg tab, continue prn Ibuprofen, continue Compazine 5mg prn, continue Propanolol 10mg qhs, start Ajovy 225 mg sc q month, resume Frovatriptan 2.5mg bid, f/u in 3 mo Assessment & Plan (06/09/2023 9:11 AM EST): Followed by neurologist Assessment & Plan (05/16/2021 9:56 AM EDT): Followed by neurology Well controlled on current regimen of triptan, topiratmate, and prn compazine Dysmenorrhea treated with oral contraceptive Overview (05/16/2021): Followed by [employer] Continue with Necon COCs Assessment & Plan (05/16/2021 9:55 AM EDT): Stable on OCP. No c/i. Takes consistently. Will be following up with [employer]IST in a couple weeks. Other acne 04/09/2016 Overview (01/31/2018): Acne (706.1) Onset: 04/09/2016 Added by: Dania Salter Resolved Problems Problem Noted Date Diagnosed Date Resolved Date Herpes infection 05/05/2020 05/16/2021 Assessment & Plan (05/05/2020 3:42 PM EDT): Cold sores on left edge of mouth. Will treat with typical acyclovir. Discussed typical course and recurrence for these lesion. Laceration of left index fin moriah without foreign body without damage to nail 04/24/202004/21 Assessment & Plan (04/24/2020 3:45 PM EDT): No active bleeding. Clot intact. Placed steri-strip and bandage over this area. Tetanus booster recommended as 8 years since last tetanus. Due for Tdap so will give this. Allergic reaction 01/31/2018 04/19/2018 Vaginitis and vulvovaginitis 12/03/2017 04/19/2018 Overview (01/31/2018): Vaginitis (616.10) Onset: 12/03/2017 Added by: Elisa Landry Other chronic sinusitis 11/05/201704/21 Overview (01/31/2018): Chronic sinusitis, other (473.8) Onset: 11/05/2017 Added by: Jak Silva Dysmenorrhea 03/07/2017 05/16/2021 Overview (01/31/2018): Dysmenorrhea (625.3) Onset: 03/07/2017 Added by: Gloria Contreras Migraine without aura and wi thhumaira status migrainosus, not intractable 07/31/2016 05/16/2021 Overview (05/16/2021): Followed by neurology Rx- triptan, topiramate. Prn compazine. Regimen works well Allergy 11/14/2014 05/16/2021 Overview (01/31/2018): Allergy, unspecified (995.3) Onset: 11/14/2014 Added by: Valery Delacruz Immunizations Immunization Administration Dates Next Due DTaP 5 01/01/2005, 2,06/01/2001, 001,01/27/2001 HPV, Quadrivalent 07/12/2013,03/12/2013,01/07/20 13 Hep A, ped/adol 04/15/2019,03/06/2017 Hep B, ped/adol 08/31/2001,2000,2000 Hib (PRP-T) 02/26/2002, 1,03/30/2001, 001 IPV 01/01/2005, 2,03/30/2001, 001 MMR 01/01/2005,02/26/2002 Meningococcal Conj (Menactra) MCV4P 03/06/2017,0 01/03/2012 Tdap 04/24/2020,01/03/2012 Varicella 01/01/2007,05/31/2002 Family History Medical History Relation Name Comments Allergic rhinitis Brother Felix No Known Problems Mother татьяна Relation Name Status Comments Brother Felix Alive Mother татьяна Alive Social History Tobacco Use Types Packs/Day Years Used Date Smoking Tobacco: Never Smokeless Tobacco: Never Comments:Never Smoker Alcohol Use Standard Drinks/Week Comments No 0 (1 standard drink = 0.6 oz pur e alcohol) Hunger/Food Answer Date Recorded In the last 12 months, did y ou or your family ever eat less than you felt you should because there wasn't enough money for food? No 06/09/2023 Stable Housing Answer Date Recorded Are you worried that in the next 2 months you may not have stable housing? No 06/09/2023 Transportation Concerns Answer Date Rec orded In the last 12 months, have you or your family ever had to go without healthcare because you didn't have a way to get there? No 06/09/2023 Hazards in Home Answer Date Recorded Think about the place you li ve. Do you have problems with any of the following? Pests (mice or roaches), mold, no/not working smoke detectors, water leaks, no window guards. No 2022 Financing Utilities Answer Date Recorde d In the last 12 months, has t he electric, gas, oil, or water company threatened to shut off your services in your home? No 06/09/2023 Safety at Home Answer Date Recorded Are you or your family worried about feeling saf e in your home? No 06/09/2023 Outside Support Answer Date Recorded Do you feel that you need mo re support from other people or programs to help you care for yourself or your family? No 06/09/2023 Understanding Health Concerns Answer Da te Recorded Do you need help understandi ng your or your child's healthcare needs (diagnosis, medications, plan, etc.)? No 06/09/2023 Financing Health Concerns Answer Date R ecorded In the last 12 months, was t here a time when your child needed to see a doctor or get medications or supplies but could not because of cost? No 06/09/2023 Missing School or Work Answer Date Henry rded Did you or your child miss s chool or work because of a health problem that could have been avoided? No 06/09/2023 Comments No Sex and Gender Information Value Date Recorded Sex Assigned at Not on file Legal Sex Female 6:13 PM EDT Gender Identity Female 05/26/2024 8:18 AM EST Sexual Orientation Not on file Last Filed Vital Signs Vital Sign Reading Time Taken Comments Blood Pressure 126/80 06/09/2023 8:30 AM EST Pulse 105 09/06/2024 9:15 AM EST Temperature 36.8 C (98.2 F) 09/06/2024 9:15 AM EST Respiratory Rate - - Oxygen Saturation 98% 09/06/2024 9:15 AM EST Inhaled Oxygen Concentration - - Weight 74.8 kg (165 lb) 09/06/2024 9:15 AM EST Height 162.6 cm (5' 4 ) 06/09/2023 8:30 AM EST Body Mass Index 28.32 06/09/2023 8:30 AM EST Plan of Treatment Health Maintenance Due Date Last Done Comments Glucose/HbA1C 09/06/2024 04/19/2020, 12/17/2014 LDL-C/Cholesterol 09/06/2024 Influenza Vaccines (#1) 2025 COVID-19 Vaccine ( season) 2025 06/21/2021, 05/15/2021 DTaP,Tdap,and Td Vaccines (9 - Td or Tdap) 10/06/2032 10/06/2022, 04/24/2020, 01/03/2012, Additional history exists Hepatitis B Vaccines Completed 08/31/2001, 2000, 2000 HIB Vaccines Completed 02/26/2002, 05/21, 03/30/2001, Additional history exists IPV Vaccines Completed 01/01/2005, 05/21, 03/30/2001, Additional history exists MMR Vaccines Completed 01/01/2005, 02/26/2002 Varicella Vaccines Completed 01/01/2007, 05/31/2002 HPV Vaccines Completed 07/12/2013, 02/19, 01/06/2013 Meningococcal Vaccine Completed 03/06/2017, 012 Hepatitis A Vaccines Completed 04/15/2019, 03/06/20 17 Men B Vaccine Aged Out No longer elig ible based on patient's age to complete this topic Pneumococcal Vaccine Aged Out No long er eligible based on patient's age to complete this topic Procedures * Due to [place] [employer] law, this organization might not be sharing sensitive test results. Procedure Name Priority Date/Time Associated Diagnosis Comments CHLAMYDIA GC AMP PROBE Routine 3 8:46 AM EST Encounter for screening examination for sexually transmitted disease COMPREHENSIVE METABOLIC PANEL Routine 04/19/2020 12:53 PM EDT Weight loss from Last 3 Months or Most Recently Relevant to Health Maintenance Results * Due to [place] state law, this organization might not be sharing sensitive test results. * Chlamydia and Gonorrhoea, Amplified (Vagina) (06/09/2023 8:46 AM EST) Chlamydia Trachomatis, Amplified NEGATIVE (NEG) [facility] Comment: No Chlamydia Trachomatis RNA detected in this patient's sample (REFERENCE RANGE/NORMAL VALUE: NOT DETECTED) Note: This test uses bullet slug casting machine operator- mediated amplification method to detect rRNA from C. Trachomatis N.GONORRHOEAE AMP PROBE NEGATIVE (NEG) [facility] Comment: No Neisseria Gonorrhoeae RNA detected in this patient's sample (REFERENCE RANGE/NORMAL VALUE: NOT DETECTED) NOTE: This test uses bullet slug casting machine operator-mediated amplification method to detect rRNA from N.Gonorrhoeae. A negative result does not preclude infection. In the case of a negative urine result, testing of an endocervical(female) or urethral (male) specimen is recommended if there is high clinical suspicion of infection. Due to very high sensitivity of Nucleic Acid Amplification Test, false positive results may occur. Therefore, specimen handling is extremely important. In patients in whom the disease is unlikely, additional sample for testing should be considered after an initial positive result. The performance characteristics of this test have not been evaluated in children. The Aptima Combo2 assay is not intended for the evaluation of suspected sexual abuse or for other medico-legal indications. The ordering provider should assess if the patient had consensual sex without risk of sexual abuse. Consult the [facility] if needed. Contact phone number . Therapeutic failure or success cannot be determined with the Aptima Combo2 assay since nucleic acid may persist following appropriate antimicrobial therapy. The Centers for Disease Control and Prevention (CDC) recommends confirmatory retesting using culture or a different nucleic acid amplification test when positive results occur, if indicated. CHLAM/GC AMP PROBE SPEC TYPE VAGINAL SPECIMEN [facility] Comment: Testing performed or reported by [facility], a Service of [facility], [address], [place] [address] Nigel Hall MD, Roller Die Cutting Machine Operator [facility]# [id number] Swab (Vagina) 06/09/2023 8:4 6 AM EST 06/09/2023 3:04 PM EST Aurora Conrad NP LAB MICROBIOLOGY - GENERAL ORDER BUTCH Final Result [facility] * (ABNORMAL) Comprehensive metabolic panel (04/19/2020 12:53 PM EDT) Glucose 97 (70-99) MG/DL [facility] Urea Nitrogen 9 (6-20) MG/DL [facility] Creatinine 0.8 (0.5-1.0) MG/DL [facility] Sodium 143 (133-145) MMOL/L [facility] Potassium 4.0 (3.6-5.2) MMOL/L [facility] Chloride 108(H) (98-107) MMOL/L [facility] HCO3, Arterial 22 (22-29) MMOL/L [facility] Anion Gap 13 (4-17) [facility] Albumin 5.0(H) (3.4-4.8) GM/DL [facility] Calcium 9.7 (8.6-10.5) MG/DL [facility] Bilirubin, Total 0.2 (0-1.2) MG/DL [facility] Total Protein 7.0 (6.2-8.2) GM/DL [facility] A/G Ratio 2.5 [facility] AST (SGOT) 15 (0-32) U/L [facility] Alkaline Phosphatase 60 (35-104) U/L [facility] ALT (SGPT) 18 (0-33) U/L [facility] eGFR Non- 107 ML/MIN/1.7 3 M2 [facility] Comment: Creatinine based estimated glomerular filtration rate (eGFR) is calculated using the Chronic Kidney Disease Epidemiology Collaboration (CKD-EPI). The CKD-EPI creatinine equation has not been validated in children (<18 years), women or in some racial or ethnic subgroups other than Caucasians and Americans. eGFR 124 ML/MIN/1.7 3 M2 [facility] Comment: Creatinine based estimated glomerular filtration rate (eGFR) is calculated using the Chronic Kidney Disease Epidemiology Collaboration (CKD-EPI). The CKD-EPI creatinine equation has not been validated in children (<18 years), women or in some racial or ethnic subgroups other than Caucasians and Americans. Testing performed or reported by [facility], a Service of [facility], [address] [place] [id number] Oren Khan MD, Roller Die Cutting Machine Operator Blood (Blood, Venous) 04/19/2020 12:53 PM EDT 04/19/2020 6:01 PM EDT Dania Salter DO LAB BLOOD ORDERABLES Final Resu lt SABRINA from Last 3 Months or Most Recently Relevant to Health Maintenance Insurance COMMERCIAL
--- OUTSIDE RECORDS SUMMARY | 2025-05-19 15:16 | XMS_ITS | Clinical Summary ---
Author Organization [facility] Address [address] [address] Phone Care Team Providers Care Field Interviewer Name Role Phone JoieDania Kate HOFFMANN Primary Care Provider [phone] Allergies No known active allergies Medications sertraline (ZOLOFT) 100 MG tablet Take 150 mg by mouth daily. Active multivitamin Liqd Take 5 mL by mouth daily. Takes 2 gummies daily Active naproxen (NAPROSYN) 500 MG tablet Take 1 tablet (500 mg total) by mouth once as needed (repeat in 12 hours if needed). 30 tablet 1 8 Active norethindrone-ethi nyl estradiol (NECON) 0.5-0.035 mg per tabletIndications: Surveillance of previously prescribed intrauterine contraceptive device Take 1 tablet by mouth daily. 84 tablet 4 8 Active prochlorperazine (COMPAZINE) 5 MG tablet TAKE 1 TABLET(5 MG) BY MOUTH EVERY 6 HOURS NEEDED FOR NAUSEA OR MIGRAINE 30 tablet 3 1 Active propranoloL (INDERAL) 10 MG immediate release tablet Take 10 mg by mouth 3 (three) times a day. Active levonorgestrel and ethynyl estradiol (SIMPESSE) 0.15 mg-30 mcg (84)/10 mcg (7) 3MPkIndications:Dy smenorrhea treated with oral contraceptive take 1 tablet by mouth daily 91 tablet 4 4 Active Active Problems Problem Noted Date Diagnosed Date Menstrual migraine without s tatus migrainosus, not intractable 11/25/2019 Dysmenorrhea treated with oral contraceptive Assessment & Plan (03/06/2023 1:17 PM EDT): Discussed switching to an extended cycle OCP to reduce periods. Alexandrea would like to try this- new rx sent today. Discussed possibility of breakthrough bleeding on new pill. Migraine without aura and wi thout status migrainosus, not intractable 07/31/2016 Immunizations Immunization Administration Dates Next Due Dtap, 5 Pertussis Antigens 01/01/2005,,06/01/2001,03/30/2001, HPV,quadrivalent 07/12/2013,03/12/2013, 3 Hepatitis A, ped/adol, 2 dose 04/15/2019, 017 Hepatitis B 08/31/2001,2000,2000 Hib,PRP-T 02/26/2002,06/01/2001,03/30/2001 ,01/27/2001 IPV 01/01/2005,05/31/2002,03/30/2001 ,01/27/2001 MMR 01/01/2005,02/26/2002 Meningococcal MCV4O 03/06/2017,01/03/2012 Tdap 04/24/2020,01/03/2012 Varicella 01/01/2007,05/31/2002 Family History Medical History Relation Comments Seizures Father Heart disease Maternal Grandfather Thyroid disease Maternal Grandfather Cancer Maternal Grandmother Hyperlipidemia Maternal Grandmother Other Maternal Grandmother Mental Heal th issues Brain cancer Maternal Uncle Other Mother Mental Health is sues Cancer Paternal Grandmother Hyperlipidemia Paternal Grandmother Relation Status Comments Father Alive Maternal Grandfather Maternal Grandmother Maternal Uncle Mother Alive Paternal Grandmother Social History Tobacco Use Types Packs/Day Years Used Date Smoking Tobacco: Never Smokeless Tobacco: Never Tobacco Cessation:Counseling Given: Not Answered Alcohol Use Standard Drinks/Week Comments No 0 (1 standard drink = 0.6 oz pur e alcohol) Education Answer Date Recorded Are you interested in more education? Not on ayde e 11/15/2022 Are you concerned about learning? Not on file 11/15/2022 No 11/15/2022 No 11/15/2022 Digital Access Answer Date Recorded No 12/16/2022 No 12/16/2022 Reliable internet access at home? Not on file 12/16/2022 Device with a working camera? Not on file Comments No Sex and Gender Information Value Date Recorded Sex Assigned at Female 01/08/2018 1:22 PM EDT Legal Sex Female 4:21 PM EDT Gender Identity Female 01/08/2018 1:22 PM EDT Sexual Orientation Lesbian or [place] 01/08/2018 1: 22 PM EDT Occupation Industry Job Start Date Job End Date Student Not on file Not on file Not on file Last Filed Vital Signs Vital Sign Reading Time Taken Comments Blood Pressure 110/82 03/06/2023 12:08 PM EDT Pulse 84 01/05/2018 3:55 PM EDT Temperature 36.7 C (98.1 F) 01/05/2018 3:55 PM EDT Respiratory Rate - - Oxygen Saturation 97% 01/05/2018 3:55 PM EDT Inhaled Oxygen Concentration - - Weight 78.9 kg (174 lb) 03/06/2023 12:08 PM EDT Height 160 cm (5' 3 ) 03/06/2023 12:08 PM EDT Body Mass Index 30.82 03/06/2023 12:08 PM EDT Plan of Treatment Health Maintenance Due Date Last Done Comments DEPRESSION SCREENING 2012 SMOKING Hx and SMOKELESS TOBACCO SCREENING 2013 HEPATITIS C SCREENING 2018 HIV ONE-TIME SCREENING (18-65 YEARS) 2018 CHLAMYDIA SCREENING 03/06/2024 03/06/2023 INFLUENZA VACCINE (#1) 2025 COVID-19 VACCINE ( season) 2025 PAP SMEAR 03/06/2026 03/06/2023 Adult Td,Tdap Booster 04/24/2030 04/24/2020, 012 HIB VACCINES Completed 02/26/2002, 05/21, 03/30/2001, Additional history exists HPV VACCINES Completed 07/12/2013, 02/19, 01/06/2013 MENINGOCOCCAL VACCINES (ACWY) Completed 03/06/2017, 01/03/2012 HEPATITIS A VACCINES Completed 04/15/2019, 03/06/20 MENINGOCOCCAL VACCINES (B) Aged Out N o longer eligible based on patient's age to complete this topic PNEUMOCOCCAL VACCINES (0-49 years) Aged Out No longer eligible based on patient's age to complete this topic Medical Devices Not on file Procedures Procedure Name Priority Date/Time Associated Diagnosis Comments CHLAMYDIA TRACHOMATIS AND NEISSERIA GONORRHOEAE NUCLEIC ACID DETECTION Routine 03/06/2023 1:23 PM EDT Encounter for annual routine gynecological examination PAP TEST Routine 03/06/2023 12:00 AM EDT from Last 3 Months or Most Recently Relevant to Health Maintenance Results * Chlamydia Trachomatis and Neisseria Gonorrhoeae Nucleic Acid Detection (03/06/2023 1:23 PM EDT) CHLAMYDIA TRACHOMATIS Not Detected Not Detected [facility] NEISERIA GONORRHOEAE Not Detected Not Detected [facility] SPECIMEN TYPE ENDOCERVICAL GEOPHYSICAL LABORATORY DIRECTOR [facility] Other (Endocervical) 03/06/2023 1:23 PM EDT 03/06/2023 1:32 PM EDT Denita Grant CNM NON CULTURE MICROBIOLOGY Final Result Performing Organization Address City/State/[facility] Co de Phone Number [address] [address] * Pap Test (03/06/2023 12:00 AM EDT) 03/06/2023 03/07/2023 9:1 3 AM EDT Narrative SEE NARRATIVE - 03/13/2023 11:41 AM EDT [address] [address] Warehouse Laborer: Keila Foster MD WEFT STRAIGHTENER Cytology Report FINAL DIAGNOSIS A. PAP SMEAR (SUREPATH) CE: SPECIMEN ADEQUACY: Satisfactory for evaluation; transformation zone absent/insufficient. Limited by inflammation INTERPRETATION: NEGATIVE FOR INTRAEPITHELIAL LESION OR MALIGNANCY. Electronically Signed Out By: DEEDEE Morales(ASCP) The Pap test is a screening test primarily for squamous cancers and precursors and has associated false-negative and false-positive results. New technologies such as liquid-based preparations may decrease but will not eliminate all false-negative results. Regular sampling and follow-up of unexplained clinical signs and symptoms are recommended to minimize false negative results. CLINICAL HISTORY Date of Last Menstrual Period: 03-03-2023 Contraceptive History: BCPs Other Clinical Conditions: Screening Pap SPECIMEN SOURCE A: PAP SMEAR (SUREPATH) CE Patient Name: KAVIN ALEXANDREA : 2000 (Age: 22) Sex: F Institution: [facility] Location: [facility] Date of Collection: 03/06/2023 Date of Reported: 03/13/2023 11:41 Results to: Denita Grant CNM Denita Grant CNM CYTOLOGY ORDERABLES Rsoana l Result SEE NARRATIVE from Last 3 Months or Most Recently Relevant to Health Maintenance Insurance O O HMO HMO O [place] [address] [place] [address] [place], [place] [id number] O O O O O Care Teams Field Interviewer Relationship Specialty Start Date End Date Dania Salter DO PCP - General Pediatrics 05/09/16 Additional Source Comments The information contained in this document represents components of the legal health record. It is not the complete legal health record.[facility]
--- OUTSIDE RECORDS SUMMARY | 2025-05-19 15:16 | XMS_ITS | Clinical Summary ---
Author Organization [facility] Address [address] [place] [id number] Care Team Providers Care Personal Health Coach Name Role Phone Dania Salter DO Primary Care Provider [phone] Allergies Active Allergy Reactions Criticality Noted Date Comments Banana 04/24/2020 Anika Oil 04/24/2020 Seasonal 04/24/2020 Tree Nuts 04/24/2020 Medications Medication Sig Dispensed Refills Start Date End Date Status sertraline (ZOLOFT) 100 MG tablet Take 100 mg by mouth daily. 0 Active busPIRone (BUSPAR) 10 MG tablet Take 10 mg by mouth 3 (three) times a day. 0 Active topiramate (TOPAMAX) 100 MG tablet Take 100 mg by mouth daily. 0 Active frovatriptan (FROVA) 2.5 MG tablet Take 2.5 mg by mouth as needed for migraine. If recurs, may repeat after 2 hours. Max of 3 tabs in 24 hours. 0 Active norethindrone-ethin yl estradiol (Necon 0.5/35, 28,) 0.5-35 MG-MCG per tablet Take 1 tablet by mouth daily. 0 Active QUEtiapine (SEROquel) 25 MG tablet Take 25 mg by mouth. 0 Active LORazepam (ATIVAN) 0.5 MG tablet Take 0.5 mg by mouth daily as needed. for anxiety 0 02/15/2021 Active EPINEPHrine 0.3 MG/0.3ML SOAJ Inject into muscle immediately for signs of anaphylaxis AND call 911. Repeat if symptoms worsen/recur or if uncertain medicine was given 0 04/15/2019 Active ibuprofen 200 MG tablet Take 3 tablets (600 mg total) by mouth every 6 (six) hours as needed for pain. 30 tablet 0 04/06/2021 Active Active Problems No known active problems Immunizations Name Administration Dates Next Due Boostrix (Tdap) 10/06/2022 Social History Tobacco Use Types Packs/Day Years Used Date Smoking Tobacco: Never Smokeless Tobacco: Never Alcohol Use Standard Drinks/Week Comments Not Currently 0 (1 standard drink = 0.6 oz pur e alcohol) Sex and Gender Information Value Date Recorded Sex Assigned at Female 04/06/2021 9:41 AM EDT Gender Identity Not on file Sexual Orientation Not on file Job Start Date Occupation Industry Not on file Not on file Not on file Last Filed Vital Signs Vital Sign Reading Time Taken Comments Blood Pressure 146/98 10/06/2022 9:43 PM EDT Pulse 84 10/06/2022 9:43 PM EDT Temperature 36.8 C (98.2 F) 10/06/2022 9:43 PM EDT Respiratory Rate 18 10/06/2022 9:43 PM EDT Oxygen Saturation 99% 10/06/2022 9:43 PM EDT Inhaled Oxygen Concentration - - Weight 68 kg (150 lb) 04/06/2021 9:27 AM EDT Height 160 cm (5' 3 ) 04/06/2021 9:27 AM EDT Body Mass Index 26.57 04/06/2021 9:27 AM EDT Plan of Treatment Health Maintenance Due Date Last Done Comments Hepatitis C Screening 2000 Depression Screening 2012 Gonorrhea and Chlamydia Screening 2013 Preventative Health Evaluation 2018 Cervical Cancer Screening (Pap Smear) 2021 COVID-19 Vaccine ( season) 2025 06/21/2021, 05/15/2021 Influenza Vaccine (#1) 2025 DTap / Tdap / Td (9 - Td or Tdap) 10/06/2032 10/06/2022, 04/24/2020, 01/03/2012, Additional history exists Hepatitis B Vaccines Completed 08/31/2001, 2000, 2000 Pneumococcal Vaccine Aged Out No long er eligible based on patient's age to complete this topic RSV Ped < 20 months Aged Out No longe r eligible based on patient's age to complete this topic Care Teams Personal Health Coach Relationship Specialty Start Date End Date Dania Salter DO [address] [facility] [address] [place] [address] PCP - General Pediatrics 03/10/23
--- OUTSIDE RECORDS SUMMARY | 2025-05-19 15:16 | XMS_ITS | Patient Health Record ---
Author Organization [facility] Address [address] [place] [address] Care Team Providers Care Poundmaster Name Role Phone [place] DOMINGUEZ, Aurora Primary Care Provider Unavailab Roland Rodriguez Unavailable [phone] Allergies Allergen (clinical drug ingredient) Drug/Non Drug Allergy documented on EMR Reaction Allergy Type Onset Date Status Tree Nuts Unknown Allergy Active banana allergenic extract Banana (Diagnostic) Unknown Drug Allergy Active Reason For Referral No Information Medications Medication SIG (Take, Route, Frequency, Duration) Notes Start Date End Date Status Sertraline HCl 100 MG TAKE 1 TABLET BY MOUTH EVERY DAY Oral; Duration: 30 Active Propranolol HCl 10 MG Oral; Duration: 30 Active Simpesse 0.15-0.03 &0.01 MG TAKE 1 TABLET BY MOUTH DAILY Oral; Duration: 91 [id number],Unavailabl e Active Social History Tobacco Use: Social History Observation Description Date Details (start date - stop date) Never Smoker NA - NA Tobacco Use/Smoking Question Answer Notes Patient is a nonsmoker Alcohol Screen Question Answer Notes Did you have a drink containing alcohol in the p ast year? No Points 0 Interpretation Negative Section Notes: Nonsmoker; no sig alcohol Only occasional coffee Problems Problem Type SNOMED Code ICD Code Onset Dates Problem Status W/U Status Risk Notes Problem Diarrhea (93723138) Diarrhea, unspecified type (R19.7) Active confirmed Plan Of Treatment Pending Test Test Name Order Date LIVER PROFILE 05/30/2023 CRP 05/30/2023 CBC w DIFF 05/30/2023 SED RATE (ESR) 05/30/2023 CELIAC PANEL #10 05/30/2023 STOOL WBC 05/30/2023 C DIFFICILE RFLX PCR 05/30/2023 Calprotectin, Fecal 05/30/2023 GI PANEL 05/30/2023 Insurance Providers Payer Name Payer Address Payer Phone Subscriber Number Group Number Insured Name Patient Relationship to Insured Coverage Start Date Coverage End Date [facility] [address] [facility] [place] [phone] [id number] ALEXANDREA VALE Self - patient is the insured Medical (General) History Medical History History ICD Code Denies AK,DM,CVA,Lung disease,renal dise ase Depression/Anxiety Surgical History Surgery Date(Month/Year) [place] teeth extraction/ 7 teeth pulled for braces
--- OUTSIDE RECORDS SUMMARY | 2025-05-19 15:16 | XMS_ITS | Clinical Summary ---
Author Organization [facility] Address [address] [place] [address] Care Team Providers Care Supervisor Boat Outfitting Name Role Phone Unavailable Primary Care Provider Unavailabl e Allergies No known active allergies Medications busPIRone HCl (BUSPAR) 10 MG tablet 06/21/20 21 Active Esomeprazole Magnesium (NexIUM) [address] capsule Take 20 mg by mouth Active Frovatriptan Succinate (FROVA) 2.5 MG tablet Take 2.5 mg by mouth Active LORazepam (ATIVAN) 0.5 MG tablet Take 0.5 mg by mouth 1 (one) time each day if needed 02/16/20 21 Active Nortrel 0.5/35, 28, 0.5-35 MG-MCG per tablet 07/24/19 22 Active prochlorperazi ne (COMPAZINE) 5 MG tablet prochlorperazine maleate 5 mg tablet 12/14/19 21 Active QUEtiapine Fumarate (SEROquel) 25 MG tablet Take 25 mg by mouth Active Sertraline HCl (ZOLOFT) 100 MG tablet sertraline 100 mg tablet Active Topiramate (TOPAMAX) 100 MG tablet topiramate 100 mg tablet Active Amoxicillin (AMOXIL) 500 MG capsule 1 tab three times a day 15 capsule 08/01/19 22 Active Immunizations Immunization Administration Dates Next Due Tdap 04/24/2020 Social History Tobacco Use Types Packs/Day Years Used Date Smoking Tobacco: Never Smokeless Tobacco: Never Comments No Sex and Gender Information Value Date Recorded Sex Assigned at Not on file Legal Sex Female 1:08 PM EST Gender Identity Not on file Sexual Orientation Not on file Last Filed Vital Signs Vital Sign Reading Time Taken Comments Blood Pressure 127/80 08/01/2021 1:33 PM EST Pulse 81 08/01/2021 1:33 PM EST Temperature 35.8 C (96.4 F) 08/01/2021 1:33 PM EST Respiratory Rate 18 08/01/2021 1:33 PM EST Oxygen Saturation 98% 08/01/2021 1:33 PM EST Inhaled Oxygen Concentration - - Weight - - Height - - Body Mass Index - - Plan of Treatment Health Maintenance Due Date Last Done Comments Hepatitis C Screening 2000 HPV Vaccine (1 - 3-dose series) 11/27/2015 Pap Smear 2016 Hep B (1 of 3 - 19+ 3-dose series) 11/27/2019 Chlamydia 05/16/2022 05/16/2021 COVID-19 Vaccine (1 - 2024-2 6 season) 2025 Influenza (#1) 2025 DTaP/Tdap/Td (2 - Td or Tdap) 04/24/2030 04/24/2020 Zoster (Shingrix) (1 of 2) 2050 Hep A Aged Out No longer eligi ble based on patient's age to complete this topic Hib Aged Out No longer eligi ble based on patient's age to complete this topic Meningococcal ACWY Aged Out No longer eligible based on patient's age to complete this topic Pneumococcal Aged Out No longer eligi ble based on patient's age to complete this topic Insurance
--- OUTSIDE RECORDS SUMMARY | 2025-05-19 15:16 | XMS_ITS | Encounter Summary ---
Author Organization [facility] Address [address] [place] [address] Phone Care Team Providers Care Leather Goods Ii Assembler Name Role Phone Aurora Conrad NP Primary Care Provider [phone] Encounter Details Date Type Department Care Team (Late st Contact Info) Description 12/03/2010 Conversion Encounter [facility] [address] [place] [address] [place] [address] Social History Tobacco Use Types Packs/Day Years Used Date Smoking Tobacco: Never Assessed Comments Unknown Sex and Gender Information Value Date Recorded Sex Assigned at Not on file Legal Sex Female 6:13 PM EDT Gender Identity Female 05/26/2024 8:18 AM EST Sexual Orientation Not on file documented as of this encounter Plan of Treatment Not on file documented as of this encounter Visit Diagnoses Not on filedocumented in this encounter Care Teams Leather Goods Ii Assembler Relationship Specialty Start Date End Date Aurora Conrad NP [address] [place] [address] [place] [address] PCP - General Pediatrics 11/03/20 05/18/25 documented as of this encounter
== END 2025-05-19 12:52 | disposition home or self-care (01) ==
LOC: HO.HMCC 12:25
PROVIDERS: PCP Pediatrics; Visit Provider Nurse Practitioner Family
DX: Z00.00 Encounter for general adult medical examination without abnormal findings (principal)

== ENCOUNTER → 2025-05-19 12:25 | Outpatient (BNVA) | payer OTHER, SELFPAY | PROVIDERS: PCP Pediatrics; Visit Provider Nurse Practitioner Family | DX: Z00.00 Encounter for general adult medical examination without abnormal findings (principal) | CPT/HCPCS: 96127 ==